=== PATIENT | female | born 1980 | race Caucasian/White ===

== ENCOUNTER 2017-09-10 21:54 | Inpatient (IN) | payer OTHER ==
[2017-09-10] MEDS ORDERED: LORazepam 2 MG/ML INJ IV STA (22:04)
[2017-09-10] MEDS ORDERED: SODIUM CHLORIDE 0.9% 1,000 ML IV STA (22:04)
[2017-09-10 22:12] LABS: Glucose,Whole Blood 92 mg/dL (75-99)
[2017-09-10] MEDS ORDERED: PHENYTOIN SODIUM INJ 1,000 MG in SODIUM CHLORIDE 0.9% 100 ML IVPB STA (22:17)
[2017-09-10 22:23] LABS: Anisocytosis Slight; Basophils % (A) 0 %; Eosinophils # (A) 0.3 k/uL (0-0.7); Eosinophils % (A) 4 %; HCT 41.3 % (34.0-46.0); HGB 13.6 gm/dL (11.4-16.0); Lymphocytes % (A) 27 %; MCH 30.3 pg (25.0-35.0); MCHC 32.8 g/dL (31.0-37.0); MCV 92.3 fL (80.0-100.0); Mean Platelet Volume 6.7; Monocytes # (A) 0.4 k/uL (0-1.0); Monocytes % (A) 5 %; Neutrophils # (A) 4.3 k/uL (1.3-7.7); Neutrophils % (A) 60 %; Platelet Count 377 k/uL (150-450); RBC 4.48 m/uL (3.80-5.40); RDW 16.4 % (11.5-15.5); WBC 7.2 k/uL (3.8-10.6)
[2017-09-10 22:33] LABS: Glucose 94 mg/dL (74-99); Total Protein 7.4 g/dL (6.3-8.2)
[2017-09-10 22:34] LABS: ALT 34 U/L (9-52); AST 30 U/L (14-36); Albumin 4.4 g/dL (3.5-5.0); Alcohol <10 mg/dL; Alkaline Phosphatase 87 U/L (38-126); Anion Gap 15 mmol/L; Blood Urea Nitrogen 13 mg/dL (7-17); Calcium 10.4 mg/dL (8.4-10.2); Carbon Dioxide 22 mmol/L (22-30); Chloride 102 mmol/L (98-107); Magnesium 2.1 mg/dL (1.6-2.3); Sodium 139 mmol/L (137-145); Total Bilirubin 0.4 mg/dL (0.2-1.3)
--- NOTE | 2017-09-10 23:06 | ED ---
General Adult HPI - General Chief complaint: Seizure Stated complaint: seizure Time Seen by Provider: 09/10/17 21:55 Source: patient, EMS, RN notes reviewed Mode of arrival: EMS Limitations: altered mental status - History of Present Illness Initial comments: Patient is an unresponsive 37-year-old female presenting to the emergency department following seizure. Patient reportedly is at [facility] for opiate problems. Patient is unresponsive and postictal and unable to provide history. EMS reports patient had a seizure at [facility]. They did witness two seizures in route and patient receive 10 mg of Versed IM. Patient did have another seizure in the emergency department lasting seconds. Patient does have a history of seizures. Patient is on Keppra. Patient has also been receiving phenobarbital at [facility]. - Related Data Home Medications Medication Instructions Recorded Confirmed Acetaminophen Tab [Tylenol Tab] 650 mg PO Q4H PRN 09/10/17 09/10/17 Calcium 1000mg Magnesium 500mg 1 tab PO TID PRN 09/10/17 09/10/17 Chlorpheniramine Maleate 4 mg PO Q4H PRN 09/10/17 09/10/17 [Chlor-Trimeton] Gabapentin [Neurontin] 1,200 mg PO BID@0600,1730 09/10/17 09/10/17 Hyoscyamine Sulfate [Levsin] 0.125 mg PO QID PRN 09/10/17 09/10/17 Ibuprofen [Motrin] 600 mg PO Q6H PRN 09/10/17 09/10/17 Loperamide [Imodium] 2 mg PO QID PRN 09/10/17 09/10/17 Methadone (Unknown Dose) 1 dose PO DIRECTED 09/10/17 09/10/17 Multivitamins, Thera [Multivitamin 1 tab PO DAILY 09/10/17 09/10/17 (formulary)] Ondansetron HCl [Zofran] 8 mg PO Q6H PRN 09/10/17 09/10/17 Ondansetron [Zofran] 4 mg IM Q6H PRN 09/10/17 09/10/17 PHENobarbital 32.4 mg PO ONCE 09/10/17 09/10/17 Sertraline [Zoloft] 150 mg PO DAILY@0600 09/10/17 09/10/17 Thiamine [Vitamin B-1] 100 mg PO DAILY 09/10/17 09/10/17 Tigan 200mg 200 mg IM Q6H PRN 09/10/17 09/10/17 Trimethobenzamide [Tigan] 300 mg PO Q6H PRN 09/10/17 09/10/17 busPIRone HCl [Buspar] 10 mg PO TID PRN 09/10/17 09/10/17 cloNIDine HCL [Catapres] 0.1 mg PO Q4H PRN 09/10/17 09/10/17 levETIRAcetam [Keppra] 500 mg PO DAILY@0600 09/10/17 09/10/17 traZODone HCL 50 - 150 mg PO HS 09/10/17 09/10/17 Allergies Allergy/AdvReac Type Severity Reaction Status Date / Time No Known Allergies Allergy Unverified 09/10/17 22:13 Review of Systems ROS Statement: Those systems with pertinent positive or pertinent negative responses have been documented in the HPI. ROS Other: All systems not noted in ROS Statement are negative. Limitations: ROS unobtainable due to patients medical condition Past Medical History Past Medical History: Seizure Disorder History of Any Multi-Drug Resistant Organisms: None Reported Past Surgical History: Orthopedic Surgery Past Psychological History: No Psychological Hx Reported Smoking Status: Current every day smoker Past Alcohol Use History: None Reported Past Drug Use History: Unable to Obtain General Exam Limitations: altered mental status, physical limitation General appearance: lethargic Head exam: Present: atraumatic Eye exam: Present: normal appearance, PERRL ENT exam: Present: normal oropharynx Neck exam: Present: normal inspection Respiratory exam: Present: normal lung sounds bilaterally Cardiovascular Exam: Present: regular rate, normal rhythm GI/Abdominal exam: Present: soft. Absent: tenderness Extremities exam: Present: normal inspection Neurological exam: Present: other (Postictal and unresponsive.) Psychiatric exam: Present: other (Unresponsive) Skin exam: Present: normal color Course Vital Signs 09/10/17 22:39 Temperature 99.0 F Pulse Rate 92 Respiratory 20 Rate Blood Pressure 102/56 O2 Sat by Pulse 96 Oximetry - Reevaluation(s) Reevaluation #1: 09/10/17 23:14 Patient reevaluated and alert and appropriate. Patient oriented except for believes years 2016. Patient states she has had seizures since age 19. Patient states she only has a few per year. Patient states she has been taking her Keppra. Patient states she has been at [facility] around 10 days now. 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 Patient states she has been on phenobarbital there and has been weaned off it. Last dose of phenobarbital was today. Patient denies any significant benzodiazepine or alcohol use. Patient denies any significant injury from seizures. 09/10/17 23:21 Case was discussed in detail with Dr. Chavarria, who will admit for hospital call. EKG Findings - EKG Comments: EKG Findings:: Normal sinus rhythm 81. MT 138. QRS 94. QT 406. QTc 471. Normal axis. Incomplete right bundle-branch block. No acute ST change. Medical Decision Making - Lab Data Result diagrams: 09/10/17 22:12 09/10/17 22:12 Lab Results 09/10/17 09/10/17 09/10/17 Range/Units 22:10 22:12 22:12 WBC 7.2 (3.8-10.6) k/uL RBC 4.48 (3.80-5.40) m/uL Hgb 13.6 (11.4-16.0) gm/dL Hct 41.3 (34.0-46.0) % MCV 92.3 (80.0-100.0) fL MCH 30.3 (25.0-35.0) pg MCHC 32.8 (31.0-37.0) g/dL RDW 16.4 H (11.5-15.5) % Plt Count 377 (150-450) k/uL Neutrophils % 60 % Lymphocytes % 27 % Monocytes % 5 % Eosinophils % 4 % Basophils % 0 % Neutrophils # 4.3 (1.3-7.7) k/uL Lymphocytes # 2.0 (1.0-4.8) k/uL Monocytes # 0.4 (0-1.0) k/uL Eosinophils # 0.3 (0-0.7) k/uL Basophils # 0.0 (0-0.2) k/uL Anisocytosis Slight Sodium 139 (137-145) mmol/L Potassium 4.0 (3.5-5.1) mmol/L Chloride 102 (98-107) mmol/L Carbon Dioxide 22 (22-30) mmol/L Anion Gap 15 mmol/L BUN 13 (7-17) mg/dL Creatinine 0.85 (0.52-1.04) mg/dL Est GFR (MDRD) Af Amer >60 (>60 ml/min/1.73 sqM) Est GFR (MDRD) Non-Af >60 (>60 ml/min/1.73 sqM) Glucose 94 (74-99) mg/dL POC Glucose (mg/dL) 92 (75-99) mg/dL POC Glu [employer] [facility] ID Johnson Stoddard Calcium 10.4 H (8.4-10.2) mg/dL Magnesium 2.1 (1.6-2.3) mg/dL Total Bilirubin 0.4 (0.2-1.3) mg/dL AST 30 (14-36) U/L ALT 34 (9-52) U/L Alkaline Phosphatase 87 (38-126) U/L Total Protein 7.4 (6.3-8.2) g/dL Albumin 4.4 (3.5-5.0) g/dL Serum Alcohol <10 mg/dL - Radiology Data Radiology results: image reviewed (Computed tomography scan of the brain shows no acute process.) Critical Care Time Critical Care Time: Yes Total Critical Care Time: 32 Disposition Clinical Impression: Status epilepticus Disposition: ADMITTED IP TO THIS [facility] Condition: Serious Referrals: None,Stated [Primary Care Provider] - 1-2 days Decision Time: 23:21
--- NOTE | 2017-09-10 23:08 | CT ---
EXAMINATION TYPE: CT brain wo con DATE OF EXAM: 09/10/2017 COMPARISON: NONE HISTORY: Seizures today, history of epilepsy. CT DLP: 1018.50 mGycm. Automated Exposure Control for Dose Reduction was Utilized. TECHNIQUE: CT scan of the head is performed without contrast. FINDINGS: Ventricles and sulci appear normal. There is no mass effect nor midline shift. There is n o sign of intracranial hemorrhage. The calvarium is intact. CONCLUSION: Negative CT scan of the brain.
[2017-09-10] MEDS ORDERED: NALOXONE 0.4 MG/ML 1 ML VIAL IV PRN ×2 (23:22→23:52)
[2017-09-10] MEDS ORDERED: LORazepam 2 MG/ML INJ IV PRN (23:22)
[2017-09-10] MEDS ORDERED: CALCIUM CARBONATE 500 MG CHEWABLE PO PRN (23:52)
[2017-09-10] MEDS ORDERED: MELATONIN 3 MG TABLET PO PRN (23:52)
[2017-09-10] MEDS ORDERED: IBUPROFEN 400 MG TAB PO PRN (23:52)
[2017-09-10] MEDS ORDERED: ACETAMINOPHEN TAB 325 MG TAB PO PRN (23:52)
[2017-09-10] MEDS ORDERED: ONDANSETRON 4 MG/2 ML VIAL IVP PRN (23:52)
--- NOTE | 2017-09-10 23:53 | P.HPIM ---
History of Present Illness H&P Date: 09/10/17 Chief Complaint: seizure Patient is a 37-year-old female with a past medical history of tobacco abuse, methadone use, and seizure disorder who presented via EMS to the hospital from [facility] after having a seizure that lasted 10 minutes. At [facility] bryce gave her 2 mg of Ativan. She had 2 additional seizures in the ems rig where they gave her 10 of Valium. She had an additional seizure after presenting here to the hospital requiring an additional 1 mg of Ativan. They also started on Dilantin 1000 mg. In the ER she underwent an extensive evaluation. Vital sign, head CT, and laboratory analysis were all within normal limits. Patient seen and examined at bedside. She has been detoxing from methadone and has decreased from 154 mg daily down to 40 mg daily. She had been on a phenobarbital taper and her last dose was today. She is started at 92.4 mg in today's dose was 32.4. She was tapered over what appears to be a 10 day period of time. She states that she delivered her son on 07/09/2017. She had been placed on methadone during her secondary to prior alcohol abuse. She states that her son was detoxed from methadone after and she wants to come off as well. She complains of a headache that started after her seizure as well as generalized body aches. She states that they told her she feel quite hard with her first seizure. She has been suffering from signs of opiate withdrawal for the last several days including feeling achy all over with diffuse joint pain and body aches. She also reports feeling shaky and having a feeling of things crawling all over her skin. She reports that her appetite was decreased today but had been normal otherwise. She also reports that she has some blurry vision after her seizure which seems to be getting better. She does not recall her seizures. She doesn't think she lost control of her bowel or bladder. She first started having seizures approximately 8 years ago after coming off heroin. She states her last seizure was 05/09/2017 area she states that prior to that she was having intermittent seizures throughout the summer. She states she sometimes has seizures quite frequently and otherwise can go a long period of time without seizures area she states that she follows with a neurologist out of [facility]. Review of Systems General: no fever/chills, no rigors, no weight loss/weight gain, + fatigue Eyes: + burry vision, no loss of vision ENT: no rhinorrhea, no congestion, no sore throat Cardiovascular: no chest pain, no palpitations, no preyncope/syncope, no edema Pulmonary: no shortness of breath, no wheezing, no cough Abdominal: no abdominal pain, no constipation, no diarrhea, no vomiting, no nausea Genitourinary: no dysuria, no urinary frequency, no unusual discharge/odor Neuro: + seizure, +l paresthesias, no unusual paresis/paralysis, + headache Dermatologic: no unusual rashes, no unusual lesions, no unusual changes in nails Hematologic: no hemoptysis, no hematuria, no melena/hematochezia Psychiatric: no changes in mood or behaviors, + poor sleep pattern Past Medical History Past Medical History: Seizure Disorder History of Any Multi-Drug Resistant Organisms: None Reported Past Surgical History: Orthopedic Surgery Additional Past Surgical History / Comment(s): L ank fracture repair, left knee and femure fracture repair, left collar bone fracture repair Past Psychological History: No Psychological Hx Reported Smoking Status: Current every day smoker Past Alcohol Use History: None Reported Past Drug Use History: Heroin, Prescription Drug Abuse Additional History: Lives with her fiance and son - Past Family History Mother Additional Family Medical History / Comment(s): No family hsitory of seizure diorder Medications and Allergies Home Medications Medication Instructions Recorded Confirmed Type Acetaminophen Tab [Tylenol Tab] 650 mg PO Q4H PRN 09/10/17 09/10/17 History Calcium 1000mg Magnesium 500mg 1 tab PO TID PRN 09/10/17 09/10/17 History Chlorpheniramine Maleate 4 mg PO Q4H PRN 09/10/17 09/10/17 History [Chlor-Trimeton] Gabapentin [Neurontin] 1,200 mg PO BID@0600,1730 09/10/17 09/10/17 History Hyoscyamine Sulfate [Levsin] 0.125 mg PO QID PRN 09/10/17 09/10/17 History Ibuprofen [Motrin] 600 mg PO Q6H PRN 09/10/17 09/10/17 History Loperamide [Imodium] 2 mg PO QID PRN 09/10/17 09/10/17 History Methadone (Unknown Dose) 1 dose PO DIRECTED 09/10/17 09/10/17 History Multivitamins, Thera [Multivitamin 1 tab PO DAILY 09/10/17 09/10/17 History (formulary)] Ondansetron HCl [Zofran] 8 mg PO Q6H PRN 09/10/17 09/10/17 History Ondansetron [Zofran] 4 mg IM Q6H PRN 09/10/17 09/10/17 History PHENobarbital 32.4 mg PO ONCE 09/10/17 09/10/17 History Sertraline [Zoloft] 150 mg PO DAILY@0600 09/10/17 09/10/17 History Thiamine [Vitamin B-1] 100 mg PO DAILY 09/10/17 09/10/17 History Tigan 200mg 200 mg IM Q6H PRN 09/10/17 09/10/17 History Trimethobenzamide [Tigan] 300 mg PO Q6H PRN 09/10/17 09/10/17 History busPIRone HCl [Buspar] 10 mg PO TID PRN 09/10/17 09/10/17 History cloNIDine HCL [Catapres] 0.1 mg PO Q4H PRN 09/10/17 09/10/17 History levETIRAcetam [Keppra] 500 mg PO DAILY@0600 09/10/17 09/10/17 History traZODone HCL 50 - 150 mg PO HS 09/10/17 09/10/17 History Allergies Allergy/AdvReac Type Severity Reaction Status Date / Time No Known Allergies Allergy Unverified 09/10/17 22:13 Physical Exam Osteopathic Statement: *. No significant issues noted on an osteopathic structural exam other than those noted in the History and Physical/Consult. Vitals: Vital Signs Temp Pulse Resp BP Pulse Ox 09/10/17 22:39 99.0 F 92 20 102/56 96 Intake and Output 09/10/17 09/10/17 09/11/17 14:59 22:59 06:59 Other: Weight 74.843 kg Patient Weight 09/11/17 06:59 Weight 74.843 kg General: non toxic, no distress, appears at stated age, normal weight Derm: no unusual rashes/lesions no unusual ecchymoses, warm, dry Head: atraumatic, normocephalic, symmetric Eyes: EOMI, no lid lag, anicteric sclera, pupils equal round reactive to light ENT: Nose and ears atraumatic, no thrush, no pharyngeal erythema Neck: No thyromegaly, no cervical lymphadenopathy, trachea midline, supple Mouth: no lip lesion, mucus membranes moist Cardiovascular: S1S2 reg, no murmur, positive posterior tibial pulse bilateral, no edema, capillary refill less than 2 seconds Lungs: CTA bilateral, no rhonchi, no rales , no accessory muscle use Abdominal: soft, nontender to palpation, no guarding, no appreciable organomegaly, normal bowel sounds Ext: no gross muscle atrophy, muscle strength 5 out of 5 in all 4 extremities grossly, no contractures, Neuro: CN II-XI grossly intact, light touch intact all 4 extremities, finger to nose within normal limits, Psych: Alert, oriented, appropriate affect Results CBC & Chem 7: 09/10/17 22:12 09/10/17 22:12 Labs: Abnormal Lab Results - Last 24 Hours (Table) 09/10/17 09/10/17 Range/Units 22:12 22:12 RDW 16.4 H (11.5-15.5) % Calcium 10.4 H (8.4-10.2) mg/dL CT Scan - head: report reviewed Thrombosis Risk Factor Assmnt - DVT/VTE Prophylaxis DVT/VTE Prophylaxis: Mechanical Prophylaxis ordered Assessment and Plan Assessment: 1. Status epliepticus - suspect due to wean from phenobarbital - dilantin load and then 100mg TID - on keppra 500mg once daily at home, I am wondering if this with an extended release keppra and was inadverntly switched to normal keppra, will use Keppra 500mg twice dialy - Await keppra and phenobarb levels. - Seizure precautions - Neuro checks - EEG - Neurology consult - she had also received flagyl which lowers the seizure threshold - Await UDS 2. Methadone withdrawal - on a slow steffanie - resume her current dose of 44mg dialy - return to [facility] at discharge 3. Tobacco abuse - cessation - nicotine replacement 4. muscle aches - likely from opiate withdrawal - in light of multiple seizure check CPK now thne [id number] - IVF Surrogate decision-maker: Neha Moran [phone] CODE STATUS:full DVT prophylaxis: SCD Discussed with: Patient, ED physician Anticipated discharge: 48-[address] A total of 65 minutes was spent on the care of this complex patient more than 50 % of the time was spent in counseling and care coordination.
[2017-09-11] MEDS ORDERED: SODIUM CHLORIDE 0.9% 1,000 ML IV STA (00:04)
[2017-09-11] MEDS ORDERED: NICOTINE POLACRILEX 2 MG GUM BUCCAL PRN (00:38)
[2017-09-11 00:48] VITALS: BMI 26.7
[2017-09-11 01:30] LABS: Appearance,Urine Cloudy (Clear); Bilirubin,Urine Negative (Negative); Blood,Urine Negative (Negative); Color,Urine Yellow; Glucose,Urine (UA) Negative (Negative); Ketones,Urine Negative (Negative); Leukocyte Esterase,Urine Small (Negative); Mucus,Urine Rare /hpf; Nitrite,Urine Negative (Negative); PH, Urine 6.5 (5.0-8.0); Protein,Urine Negative (Negative); RBC,Urine 1 /hpf (0-5); Specific Gravity,Urine 1.014 (1.001-1.035); Squamous Epithelial Cell,Urine 11 /hpf (0-4); Urobilinogen,Urine <2.0 mg/dL (<2.0); WBC,Urine 7 /hpf (0-5)
[2017-09-11] MEDS: SODIUM CHLORIDE 0.9% 1,000 ML IV SCH ×3 (01:30→16:26)
[2017-09-11 01:38] LABS: Amphetamine Screen,Urine Not Detected (NotDetected); Barbiturate Screen,Urine Detected (NotDetected); Benzodiazepines Screen,Urine Detected (NotDetected); Cocaine Screen,Urine Not Detected (NotDetected); Methadone Screen, Urine Detected (NotDetected); Opiate Screen,Urine Not Detected (NotDetected); Oxycodone Screen, Urine Not Detected (NotDetected); Phencyclidine Screen,Urine Not Detected (NotDetected); Tricyclic Antidepressant,Urine Not Detected (NotDetected); Urn Cannabinoid Scrn Not Detected (NotDetected)
[2017-09-11] MEDS: busPIRone HCl 10 MG TAB PO PRN (04:10)
[2017-09-11 04:54] LABS: Anisocytosis Slight; Basophils % (A) 0 %; Eosinophils # (A) 0.3 k/uL (0-0.7); Eosinophils % (A) 4 %; HCT 37.3 % (34.0-46.0); HGB 12.1 gm/dL (11.4-16.0); Lymphocytes # (A) 2.1 k/uL (1.0-4.8); Lymphocytes % (A) 30 %; MCH 29.8 pg (25.0-35.0); MCHC 32.3 g/dL (31.0-37.0); MCV 92.3 fL (80.0-100.0); Mean Platelet Volume 7.3; Monocytes # (A) 0.3 k/uL (0-1.0); Monocytes % (A) 4 %; Neutrophils # (A) 3.9 k/uL (1.3-7.7); Neutrophils % (A) 57 %; Platelet Count 339 k/uL (150-450); RBC 4.04 m/uL (3.80-5.40); RDW 17.7 % (11.5-15.5); WBC 6.8 k/uL (3.8-10.6)
[2017-09-11 05:13] LABS: Anion Gap 7 mmol/L; Blood Urea Nitrogen 12 mg/dL (7-17); Calcium 8.8 mg/dL (8.4-10.2); Carbon Dioxide 25 mmol/L (22-30); Chloride 106 mmol/L (98-107); Creatine Kinase 93 U/L (30-135); Glucose 84 mg/dL (74-99); Magnesium 1.9 mg/dL (1.6-2.3); Phosphorus 4.5 mg/dL (2.5-4.5); Potassium 4.1 mmol/L (3.5-5.1); Sodium 138 mmol/L (137-145)
[2017-09-11] MEDS ORDERED: levETIRAcetam 500 MG TAB PO SCH ×2 (06:00→09:00)
[2017-09-11] MEDS: LORazepam 2 MG/ML INJ IV PRN ×7 (06:10→21:53)
[2017-09-11] MEDS: SERTRALINE 50 MG TAB PO SCH (07:40)
[2017-09-11] MEDS: GABAPENTIN 400 MG CAP PO SCH ×2 (07:40→20:32)
[2017-09-11] MEDS ORDERED: PHENYTOIN SODIUM INJ 700 MG in SODIUM CHLORIDE 0.9% 100 ML IVPB STA (08:02)
[2017-09-11] MEDS ORDERED: PHENYTOIN SODIUM EXTENDED 100 MG CAP PO SCH (09:00)
[2017-09-11] MEDS ORDERED: METHADONE 10 MG TAB PO SCH (09:00)
[2017-09-11] MEDS: KETOROLAC 30 MG/ML 1 ML VIAL IVP PRN ×2 (09:08→16:53)
[2017-09-11] MEDS ORDERED: PHENYTOIN SODIUM INJ 100 MG in SODIUM CHLORIDE 0.9% 100 ML IVPB SCH (10:00)
[2017-09-11] MEDS: levETIRAcetam IV 500 MG in SODIUM CHLORIDE 0.9% 100 ML IVPB SCH ×2 (10:21→20:32)
[2017-09-11] MEDS: PHENYTOIN SODIUM INJ 50 MG/ML 2 ML VIAL IVP SCH ×3 (10:23→21:53)
[2017-09-11] MEDS: THIAMINE 100 MG TAB PO SCH (10:30)
[2017-09-11] MEDS: FAMOTIDINE 20 MG TAB PO SCH ×2 (10:30→20:33)
[2017-09-11] MEDS: PHENobarbital SODIUM 130 MG/ML 1 ML VIAL IV SCH (11:18)
[2017-09-11] MEDS ORDERED: METHADONE 5 MG TAB PO ONE (11:45)
--- NOTE | 2017-09-11 12:01 | P.CNNES ---
History of Present Illness Consult date: 09/11/17 Reason for Consult: Patient with seizures during methadone detox program. History of Present Illness: This patient is a 37-year-old right-handed white female who was recently admitted to [facility] for methadone detoxification program. Patient was at the [facility] for the past 10 days. Yesterday she was noted to have a seizure that lasted 10 minutes in duration. She was given 2 mg of Ativan. She apparently had 2 additional seizures and EMS was called to the facility. She was given 10 mg of Valium and then transported to the emergency room at the [facility] for further evaluation. She had an additional seizure and was loaded with IV Dilantin in the emergency room by Dr. Sage. She was sent for a computed tomography scan of the brain which came back negative for any abnormalities. She was then transferred to the intensive care unit for close monitoring. Patient states that she had a history of methadone addiction and was slowly being detoxified at the [facility]. She was on 40 mg of methadone just prior to the onset of seizures. She was also placed on various medications for seizure prophylaxis as she had a history of previous seizures. She is currently on Keppra 500 mg twice a day. She was loaded with IV Dilantin in the emergency room last night and her stat Dilantin level did come back subtherapeutic this morning at 6.7. She was given an additional IV bolus of Dilantin if she continued to have short 5-10 second episodes of seizure-like activity early this morning in the ICU. Patient is a poor historian but states she has a history of seizures for over 6 months. She follows with a neurologist in [facility] in [place]. She does have history of multiple drug abuse in the past as well as use of heroin in the past. She is now currently more relaxed and appropriate in the ICU and has had no further seizure -like spells. Apparently they attempted to do an EEG this morning but the patient was very agitated and he could not perform the EEG. She has some more awake and alert and is less anxious at this time and has been communicating with ICU nursing staff. Apparently the dose of methadone prior to her coming to the hospital was 60 mg daily. It is possible she may be having withdrawal symptoms to the methadone at a lower dose of [address] Artinian has adjusted her dosage today. The patient is able to answer questions this morning in the ICU. She should be monitored for any further seizures. We will reattempt to get an EEG for this patient today. At this time we will continue her on both Dilantin and Keppra. We will get anticonvulsant blood levels and adjust her dose as needed. She hopefully will be able to return to [facility] for ongoing drug rehabilitation. Her overall prognosis at this time remains guarded. Review of Systems Constitutional: Denies chills, Denies fever Eyes: denies blurred vision, denies pain Ears, nose, mouth and throat: Denies headache, Denies sore throat Cardiovascular: Denies chest pain, Denies shortness of breath Respiratory: Denies cough Gastrointestinal: Denies abdominal pain, Denies diarrhea, Denies nausea, Denies vomiting Genitourinary: Denies dysuria, Denies hematuria Musculoskeletal: Denies myalgias Integumentary: Denies pruritus, Denies rash Neurological: Reports change in mentation, Reports confusion, Reports seizures, Denies numbness, Denies weakness Psychiatric: Denies anxiety, Denies depression Endocrine: Denies fatigue, Denies weight change Past Medical History Past Medical History: Seizure Disorder History of Any Multi-Drug Resistant Organisms: None Reported Past Surgical History: Orthopedic Surgery Additional Past Surgical History / Comment(s): L ank fracture repair, left knee and femure fracture repair, left collar bone fracture repair Past Anesthesia/Blood Transfusion Reactions: No Reported Reaction Past Psychological History: No Psychological Hx Reported Smoking Status: Current every day smoker Past Alcohol Use History: None Reported Past Drug Use History: Heroin, Prescription Drug Abuse - Past Family History Mother Additional Family Medical History / Comment(s): No family hsitory of seizure diorder Father History Unknown: Yes Medications and Allergies Home Medications Medication Instructions Recorded Confirmed Type Acetaminophen Tab [Tylenol Tab] 650 mg PO Q4H PRN 09/10/17 09/10/17 History Calcium 1000mg Magnesium 500mg 1 tab PO TID PRN 09/10/17 09/10/17 History Chlorpheniramine Maleate 4 mg PO Q4H PRN 09/10/17 09/10/17 History [Chlor-Trimeton] Gabapentin [Neurontin] 1,200 mg PO BID@0600,1730 09/10/17 09/10/17 History Hyoscyamine Sulfate [Levsin] 0.125 mg PO QID PRN 09/10/17 09/10/17 History Ibuprofen [Motrin] 600 mg PO Q6H PRN 09/10/17 09/10/17 History Loperamide [Imodium] 2 mg PO QID PRN 09/10/17 09/10/17 History Methadone (Unknown Dose) 1 dose PO DIRECTED 09/10/17 09/10/17 History Multivitamins, Thera [Multivitamin 1 tab PO DAILY 09/10/17 09/10/17 History (formulary)] Ondansetron HCl [Zofran] 8 mg PO Q6H PRN 09/10/17 09/10/17 History Ondansetron [Zofran] 4 mg IM Q6H PRN 09/10/17 09/10/17 History PHENobarbital 32.4 mg PO ONCE 09/10/17 09/10/17 History Sertraline [Zoloft] 150 mg PO DAILY@0600 09/10/17 09/10/17 History Thiamine [Vitamin B-1] 100 mg PO DAILY 09/10/17 09/10/17 History Tigan 200mg 200 mg IM Q6H PRN 09/10/17 09/10/17 History Trimethobenzamide [Tigan] 300 mg PO Q6H PRN 09/10/17 09/10/17 History busPIRone HCl [Buspar] 10 mg PO TID PRN 09/10/17 09/10/17 History cloNIDine HCL [Catapres] 0.1 mg PO Q4H PRN 09/10/17 09/10/17 History levETIRAcetam [Keppra] 500 mg PO DAILY@0600 09/10/17 09/10/17 History traZODone HCL 50 - 150 mg PO HS 09/10/17 09/10/17 History Allergies Allergy/AdvReac Type Severity Reaction Status Date / Time Penicillins Allergy Unknown Verified 09/11/17 00:25 Childhood Physical Examination - Vital Signs Vital Signs: Vital Signs Temp Pulse Pulse Resp BP BP Pulse Ox 09/11/17 04:00 98.1 F 62 18 89/61 98 09/11/17 00:12 16 09/11/17 00:00 98 09/10/17 23:52 61 20 86/56 100 09/10/17 22:39 99.0 F 92 20 102/56 96 09/10/17 22:05 97.6 F 59 L 16 78/48 98 Intake and Output 09/10/17 09/11/17 09/11/17 22:59 06:59 14:59 Intake Total 675 Output Total 470 Balance 205 Intake: IV 375 Sodium Chloride 0.9% 1, 375 000 ml @ 125 mls/hr IV . Q8H [facility] Rx#:[id number] Amount of Fluid Infused ( 300 ml) Output: Urine 470 Other: Voiding Method Bedpan Weight 74.843 kg - Constitutional General appearance: average body habitus, cooperative - EENT EENT: mucous membranes moist - Respiratory Respiratory: lungs clear, normal breath sounds - Cardiovascular Cardiovascular: regular rate, normal S1, normal S2 Extremities: no peripheral edema bilaterally - Gastrointestinal Gastrointestinal: normoactive bowel sounds - Integumentary Integumentary: normal - Neurologic Cranial nerve examination: PERRL, EOMI, VFF, V1/V2/V3 grossly intact, face symmetric, tongue midline, intact gag reflex, intact corneal reflex, normal palatal elevation Speech examination: intact Sensorimotor examination: intact Detailed motor examination: grossly full strength in all extremities Motor examination - right side: 4/5: biceps, triceps, wrist flexion, wrist extension, panel builder, hip flexors, knee extensors, dorsiflexion, toe extension (EHL) , plantarflexion Motor examination - left side: 4/5: biceps, triceps, wrist flexion, wrist extension, panel builder, hip flexors, knee extensors, dorsiflexion, toe extension (EHL) , plantarflexion Detailed sensory examination: intact Reflex and gait examination: intact Reflexes: 1+: ankle, bicep, knee, tricep - Musculoskeletal Musculoskeletal: no pain - Psychiatric Psychiatric: mood/affect appropriate, cooperative Results - Laboratory Findings CBC and BMP: 09/11/17 04:31 09/11/17 04:31 Abnormal Lab Findings: Abnormal Labs 09/10/17 09/10/17 09/11/17 22:12 22:12 01:16 RDW 16.4 H Calcium 10.4 H Urine Appearance Ur Leukocyte Esterase Urine WBC Ur Squamous Epith Cells Urine Mucus Urine Methadone Screen Detected H Ur Barbiturates Screen Detected H U Benzodiazepines Scrn Detected H 09/11/17 09/11/17 01:16 04:31 RDW 17.7 H Calcium Urine Appearance Cloudy H Ur Leukocyte Esterase Small H Urine WBC 7 H Ur Squamous Epith Cells 11 H Urine Mucus Rare H Urine Methadone Screen Ur Barbiturates Screen U Benzodiazepines Scrn Assessment and Plan (1) Opiate withdrawal Current Visit: Yes Status: Acute Code(s): F11.23 - OPIOID DEPENDENCE WITH WITHDRAWAL SNOMED Code(s): 27374414 (2) Complex partial epilepsy Current Visit: Yes Status: Acute Code(s): G40.209 - LOCAL-REL SYMPTC EPI W CMPLX PRT SEIZ,NOT NTRCT,W/O STAT EPI SNOMED Code(s): 304584232 (3) Status epilepticus Current Visit: Yes Status: Acute Code(s): G40.901 - EPILEPSY, UNSP, NOT INTRACTABLE, WITH STATUS EPILEPTICUS SNOMED Code(s): 575053217 Plan: This patient is 37-year-old female who was admitted to hospital after having a breakthrough seizure at [facility]. Apparently the seizure at the facility lasted 5-10 minutes in duration. She was treated with 2 mg of Ativan. She had subsequent seizures and was transported by EMS to the emergency room at [facility] for further evaluation. She was seen in the ER by Dr. Sage. She was sent for computed tomography scan of the brain which was negative for any acute changes. She had further seizure events in the ER and was loaded with 1 g of IV Dilantin. She was then transferred to the intensive care unit for close monitoring. Early this morning she had some 10 second episodes of seizure-like activity. A stat Dilantin level was ordered and was subtherapeutic at 6.7. A bolus of IV Dilantin was given. Patient subsequently was restarted on her Keppra as her primary anticonvulsant medication. She was also maintained on IV Dilantin. Her dosage of methadone was adjusted did sit was felt that she had some withdrawal to the opiates. She is now more awake and alert and has had no further seizure activity in the ICU. She was unable to complete the EEG this morning she was very agitated. We will reattempt to obtain the EEG this afternoon. Her overall prognosis at this time remains guarded. We will check her anticonvulsant blood levels tomorrow morning and adjust her dose as needed. She will require return to the [facility] once her seizures are stabilized. Her overall prognosis at this time remains guarded. Time with Patient: Greater than 30
--- NOTE | 2017-09-11 14:04 | P.PN ---
Subjective Progress Note Date: 09/11/17 Patient is agitated, complaining of nausea and cramps having formication symptoms not complain of very much pain, nursing reporting several episodes of seizure-like activity this a.m. has had over 10 episodes since being admitted. Objective - Vital Signs Vital signs: Vital Signs Temp 98.1 F 09/11/17 04:00 Pulse 62 09/11/17 04:00 Resp 18 09/11/17 04:00 BP 89/61 09/11/17 04:00 Pulse Ox 98 09/11/17 04:00 Intake & Output 09/10/17 09/11/17 09/11/17 18:59 06:59 18:59 Intake Total 675 Output Total 470 Balance 205 Weight 74.843 kg Intake: IV 375 Sodium Chloride 0.9% 1, 375 000 ml @ 125 mls/hr IV . Q8H [facility] Rx#:[id number] Amount of Fluid Infused ( 300 ml) Output: Urine 470 Other: Voiding Method Bedpan - Exam Constitutional: No acute distress, conversant, pleasant Eyes: Anicteric sclerae, moist conjunctiva, no lid-lag, PERRLA ENMT: NC/AT,Oropharynx clear, no erythema, exudates Neck:Supple, FROM, no masses, or JVD, No carotid bruits; No thyromegaly Lungs: Clear to auscultation, Clear to percussion, Normal respiratory effort, no accessory muscle use Cardiovascular: Heart regular in rate and rhythm, No murmurs, gallops, or rubs no peripheral edema Abdominal: Soft Nontender, nom distended, no guarding, no rebound or rigidity, Normoactive bowel sounds No hepatomegaly, No splenomegaly, No palpable mass No abdominal wall hernia noted Skin: Normal temperature, tone, texture, turgor, No induration No subcutaneous nodules, No rash, lesions, No ulcers Extremities:No digital cyanosis No clubbing, Pedal pulses intact and symmetrical Radial pulses intact and symmetrical Normal gait and station, No calf tenderness Psychiatric: Alert and oriented to person, place and time, agitated, not having any hallucinations Neuro: Muscles Strength 5/5 in all 4 extremities, Sensation to light touch grossly present throughout, Cranial nerves II-XII grossly intact. No focal sensory deficits - Labs CBC & Chem 7: 09/11/17 04:31 09/11/17 04:31 Labs: Abnormal Lab Results - Last 24 Hours (Table) 09/10/17 09/10/17 09/11/17 Range/Units 22:12 22:12 01:16 RDW 16.4 H (11.5-15.5) % Calcium 10.4 H (8.4-10.2) mg/dL Urine Appearance (Clear) Ur Leukocyte Esterase (Negative) Urine WBC (0-5) /hpf Ur Squamous Epith Cells (0-4) /hpf Urine Mucus (None) /hpf Urine Methadone Screen Detected H (NotDetected) Ur Barbiturates Screen Detected H (NotDetected) U Benzodiazepines Scrn Detected H (NotDetected) 09/11/17 09/11/17 Range/Units 01:16 04:31 RDW 17.7 H (11.5-15.5) % Calcium (8.4-10.2) mg/dL Urine Appearance Cloudy H (Clear) Ur Leukocyte Esterase Small H (Negative) Urine WBC 7 H (0-5) /hpf Ur Squamous Epith Cells 11 H (0-4) /hpf Urine Mucus Rare H (None) /hpf Urine Methadone Screen (NotDetected) Ur Barbiturates Screen (NotDetected) U Benzodiazepines Scrn (NotDetected) Assessment and Plan (1) Status epilepticus Narrative/Plan: * Likely secondary to opiate methadone withdrawal, neurology Dr. Howard johnson has been consulted * Having ongoing intermittent seizures EEG in progress * Repeat Dilantin load is level was subtherapeutic, we'll increase frequency of Ativan and continue scheduled Keppra * Continue with neuro checks and seizure precautions * The patient is critically sick Current Visit: Yes Status: Acute Code(s): G40.901 - EPILEPSY, UNSP, NOT INTRACTABLE, WITH STATUS EPILEPTICUS SNOMED Code(s): 312793564 (2) Opiate withdrawal Narrative/Plan: * Withdrawal from methadone continue with methadone 60mg PO daily Current Visit: Yes Status: Acute Code(s): F11.23 - OPIOID DEPENDENCE WITH WITHDRAWAL SNOMED Code(s): 90364240
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
--- NOTE | 2017-09-11 18:46 | EEG ---
ELECTROENCEPHALOGRAM REPORT DATE OF EE09/11/2017. REFERRING PHYSICIAN: Dr. Harris. INTERPRETING PHYSICIAN: Dr. Abhinav Chan. ELECTROENCEPHALOGRAPHIC EXAMINATION REPORT: INDICATION FOR EXAMINATION: This patient is a 37-year-old female being evaluated for multiple seizures. Patient has history of previous seizure disorder. The patient currently on 2 anticonvulsive medications including Dilantin and Keppra. AGE: [age]. EEG FINDINGS: A routine 21 channel awake digital EEG recording was accomplished utilizing the 10-20 international system with bipolar and referential montages. The background activity in the most alert resting state consists of a low to medium amplitude, fairly well- developed and well sustained 8 Hz activity over the posterior head regions. This posterior rhythm attenuates to eye opening. There is a small amount of low amplitude 18-20 Hz beta activity seen maximally over the anterior head regions. Muscle and movement artifact was observed on a few occasions during the tracing. Hyperventilation was not performed. Photic stimulation at flash frequencies of 2-30 Hz produced a minimal occipital driving response. No epileptiform discharges were seen. IMPRESSION: This EEG is normal for the patient's age. The EEG failed to reveal any focal, lateralized, or epileptiform abnormalities. Clinical correlation is recommended. MMODL / IJN: [id number] /
[2017-09-12] MEDS: KETOROLAC 30 MG/ML 1 ML VIAL IVP PRN ×2 (01:33→19:57)
[2017-09-12] MEDS: LORazepam 2 MG/ML INJ IV PRN (01:58)
[2017-09-12 02:48] LABS: Anisocytosis Slight; Basophils % (A) 0 %; Eosinophils # (A) 0.2 k/uL (0-0.7); Eosinophils % (A) 4 %; HCT 39.6 % (34.0-46.0); HGB 12.1 gm/dL (11.4-16.0); Lymphocytes # (A) 1.8 k/uL (1.0-4.8); Lymphocytes % (A) 36 %; MCHC 30.6 g/dL (31.0-37.0); MCV 94.7 fL (80.0-100.0); Monocytes # (A) 0.3 k/uL (0-1.0); Monocytes % (A) 5 %; Neutrophils # (A) 2.6 k/uL (1.3-7.7); Neutrophils % (A) 51 %; Platelet Count 337 k/uL (150-450); RBC 4.18 m/uL (3.80-5.40); RDW 17.4 % (11.5-15.5)
[2017-09-12] MEDS: busPIRone HCl 10 MG TAB PO PRN ×2 (02:57→20:36)
[2017-09-12 02:59] LABS: Anion Gap 8 mmol/L; Blood Urea Nitrogen 10 mg/dL (7-17); Calcium 8.7 mg/dL (8.4-10.2); Carbon Dioxide 21 mmol/L (22-30); Chloride 111 mmol/L (98-107); Glucose 81 mg/dL (74-99); Magnesium 1.9 mg/dL (1.6-2.3); Phosphorus 4.1 mg/dL (2.5-4.5); Potassium 3.9 mmol/L (3.5-5.1); Sodium 140 mmol/L (137-145)
[2017-09-12 03:12] LABS: Phenytoin (Dilantin) 11.1 ug/mL
[2017-09-12] MEDS ORDERED: LORazepam 2 MG/ML INJ IV ONE (03:44)
[2017-09-12] MEDS: SODIUM CHLORIDE 0.9% 1,000 ML IV SCH ×2 (04:02→13:01)
[2017-09-12] MEDS: GABAPENTIN 400 MG CAP PO SCH ×2 (05:07→17:36)
[2017-09-12] MEDS: SERTRALINE 50 MG TAB PO SCH (05:07)
[2017-09-12] MEDS ORDERED: CYCLOBENZAPRINE 5 MG TAB PO STA (07:01)
[2017-09-12] MEDS: cloNIDine HCL 0.1 MG TAB PO PRN ×2 (07:39→20:48)
[2017-09-12] MEDS: levETIRAcetam IV 500 MG in SODIUM CHLORIDE 0.9% 100 ML IVPB SCH (08:14)
[2017-09-12] MEDS: METHADONE 10 MG TAB PO SCH (08:14)
[2017-09-12] MEDS: PHENYTOIN SODIUM INJ 50 MG/ML 2 ML VIAL IVP SCH (08:14)
[2017-09-12] MEDS: THIAMINE 100 MG TAB PO SCH (08:15)
[2017-09-12] MEDS: FAMOTIDINE 20 MG TAB PO SCH ×2 (08:15→20:01)
[2017-09-12] MEDS: PHENobarbital SODIUM 130 MG/ML 1 ML VIAL IV SCH (08:16)
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
--- NOTE | 2017-09-12 10:33 | P.PN ---
Subjective Progress Note Date: 09/12/17 Patientwas apparently agitated overnight and anxious complain of restless leg syndrome, nursing reporting 2 episodes of seizure-like activity this a.m. apparently tonic-clonic in nature lasting up to 10 seconds resolving with Ativan. Patient is currently sedated and somnolent but arousable and answering questions appropriately. Objective - Vital Signs Vital signs: Vital Signs Temp 98.5 F 09/12/17 04:00 Pulse 59 L 09/12/17 09:00 Resp 10 L 09/12/17 09:00 BP 106/72 09/12/17 09:00 Pulse Ox 94 L 09/12/17 09:00 Intake & Output 09/11/17 09/12/17 09/12/17 18:59 06:59 18:59 Intake Total 1575 1635 Output Total 1600 1100 Balance -25 535 Weight 75 kg 77.4 kg 77.4 kg Intake: IV 1375 1635 Sodium Chloride 0.9% 1, 1375 1635 000 ml @ 125 mls/hr IV . Q8H [facility] Rx#:[id number] Intake, IV Titration 200 Amount Phenytoin Sodium Inj 700 100 mg In Sodium Chloride 0.9 % 100 ml @ 200 mls/hr IVPB ONCE STA Rx#: [id number] levETIRAcetam IV 500 mg 100 In Sodium Chloride 0.9% 100 ml @ 400 mls/hr IVPB Q12HR [facility] Rx#:[id number] Output: Urine 1600 1100 Other: Voiding Method Bedpan Bedpan - Exam Constitutional: No acute distress, conversant, pleasant Eyes: Anicteric sclerae, moist conjunctiva, no lid-lag, PERRLA ENMT: NC/AT,Oropharynx clear, no erythema, exudates Neck:Supple, FROM, no masses, or JVD, No carotid bruits; No thyromegaly Lungs: Clear to auscultation, Clear to percussion, Normal respiratory effort, no accessory muscle use Cardiovascular: Heart regular in rate and rhythm, No murmurs, gallops, or rubs no peripheral edema Abdominal: Soft Nontender, nom distended, no guarding, no rebound or rigidity, Normoactive bowel sounds No hepatomegaly, No splenomegaly, No palpable mass No abdominal wall hernia noted Skin: Normal temperature, tone, texture, turgor, No induration No subcutaneous nodules, No rash, lesions, No ulcers Extremities:No digital cyanosis No clubbing, Pedal pulses intact and symmetrical Radial pulses intact and symmetrical Normal gait and station, No calf tenderness Psychiatric: Alert and oriented to person, place and time, somnolent but arousable Neuro: Muscles Strength 5/5 in all 4 extremities, Sensation to light touch grossly present throughout, Cranial nerves II-XII grossly intact. No focal sensory deficits - Labs CBC & Chem 7: 09/12/17 02:31 09/12/17 02:31 Labs: Abnormal Lab Results - Last 24 Hours (Table) 09/10/17 09/12/17 09/12/17 Range/Units 22:12 02:31 02:31 MCHC 30.6 L (31.0-37.0) g/dL RDW 17.4 H (11.5-15.5) % Chloride 111 H (98-107) mmol/L Carbon Dioxide 21 L (22-30) mmol/L Phenobarbital 11.9 L (15.0-40.0) ug/mL Assessment and Plan (1) Status epilepticus Narrative/Plan: * Likely secondary to opiate methadone withdrawal, neurology Dr. Chan following * Having ongoing intermittent frequency is much improved, EEG done yesterday results pending * patient Dilantin level therapeutic low therapeutic range, continue with current dosing of 100 mg 3 times a day, Keppra 500 mg twice a day and phenobarbital 100 mg daily * Continue with neuro checks and seizure precautions Current Visit: Yes Status: Acute Code(s): G40.901 - EPILEPSY, UNSP, NOT INTRACTABLE, WITH STATUS EPILEPTICUS SNOMED Code(s): 582039294 (2) Opiate withdrawal Narrative/Plan: * Withdrawal from methadone * continue with methadone 65 mg PO daily Current Visit: Yes Status: Acute Code(s): F11.23 - OPIOID DEPENDENCE WITH WITHDRAWAL SNOMED Code(s): 49360163
--- NOTE | 2017-09-12 17:11 | P.PN ---
Subjective Progress Note Date: 09/12/17 This patient is a 37-year-old female who was in [facility] program for methadone withdrawal. She had several seizures and was transferred to the [facility] and subsequent admitted into the intensive care unit. She was loaded with Dilantin and she had ongoing seizure activity. She has a history of seizures and is also been using Keppra and phenobarbital in the past. She is currently on Keppra 500 mg twice a day. Her Dilantin level was checked today and is therapeutic at 11.1. She did have 2 small 10 second seizure-like events at 2 AM this morning. She has been doing fine since and has had no further seizures. Her dosage of methadone has been increased to 65 mg daily. She seems to be doing better on this higher dose. We have recommended to change her maintenance dose of Dilantin today to 200 mg by mouth twice a day. We will also place her on oral form of Keppra 500 mg 1 by mouth twice a day as well. We will recheck a Dilantin level tomorrow morning. Her EEG which was completed yesterday was reviewed and is normal for her age. She should be closely monitored for nonepileptic seizures as well given the normal EEG findings. We will continue however to adjust her anticonvulsant medications as needed. Would continue close monitoring of her condition. Hopefully she will be able to return to the [facility] program on Thursday. We will continue to follow her progress closely. Objective - Vital Signs Vital signs: Vital Signs Temp 98.0 F 09/12/17 16:08 Pulse 82 09/12/17 16:08 Resp 15 09/12/17 16:08 BP 97/79 09/12/17 16:08 Pulse Ox 98 09/12/17 16:08 Intake & Output 09/11/17 09/12/17 09/12/17 18:59 06:59 18:59 Intake Total 1575 1635 1310 Output Total 1600 1100 400 Balance -25 535 910 Weight 75 kg 77.4 kg 77.4 kg Intake: IV 1375 1635 250 Sodium Chloride 0.9% 1, 1375 1635 250 000 ml @ 125 mls/hr IV . Q8H [facility] Rx#:[id number] Intake, IV Titration 200 100 Amount Phenytoin Sodium Inj 700 100 mg In Sodium Chloride 0.9 % 100 ml @ 200 mls/hr IVPB [facility] Rx#: [id number] levETIRAcetam IV 500 mg 100 100 In Sodium Chloride 0.9% 100 ml @ 400 mls/hr IVPB Q12HR [facility] Rx#:[id number] Oral 960 Output: Urine 1600 1100 400 Other: Voiding Method Bedpan Bedpan Toilet # Voids 1 - Exam Physical examination: PHYSICAL EXAMINATION: Patient is resting comfortably in bed. VITAL SIGNS: Blood pressure is [97/79]. Heart rate is [82]. Respiration is [15] . Temperature is [98.0]. HEENT: Head is atraumatic, neck is supple, there were no carotid bruits. CHEST: Lungs are clear to auscultation and percussion. CARDIAC: S1, S2 normal rate and rhythm. There is no murmur. ABDOMEN: Soft and nontender. Bowel sounds are present. EXTREMITIES: There is no pedal edema. Peripheral pulses are present. Neurological examination: Patient has a nonfocal neurological examination today. - Labs CBC & Chem 7: 09/12/17 02:31 09/12/17 02:31 Labs: Abnormal Lab Results - Last 24 Hours (Table) 09/12/17 09/12/17 Range/Units 02:31 02:31 MCHC 30.6 L (31.0-37.0) g/dL RDW 17.4 H (11.5-15.5) % Chloride 111 H (98-107) mmol/L Carbon Dioxide 21 L (22-30) mmol/L Assessment and Plan (1) Opiate withdrawal Current Visit: Yes Status: Acute Code(s): F11.23 - OPIOID DEPENDENCE WITH WITHDRAWAL SNOMED Code(s): 07477923 (2) Complex partial epilepsy Current Visit: Yes Status: Acute Code(s): G40.209 - LOCAL-REL SYMPTC EPI W CMPLX PRT SEIZ,NOT NTRCT,W/O STAT EPI SNOMED Code(s): 379944123 (3) Status epilepticus Current Visit: Yes Status: Acute Code(s): G40.901 - EPILEPSY, UNSP, NOT INTRACTABLE, WITH STATUS EPILEPTICUS SNOMED Code(s): 714961737 Plan: This patient is a 37-year-old female admitted to hospital after having multiple seizures at the [facility]. She was loaded with Dilantin in the emergency room and transferred to the intensive care unit. She underwent routine EEG today which is reviewed and is normal for age. Her Dilantin level this morning is 11.1. Keppra level is still pending. We have switched the patient to oral dosing on both Dilantin and Keppra. We will continue to monitor her condition closely. Hopefully she will be able to return to the [facility] program on Thursday. Her overall prognosis at this time remains guarded.
[2017-09-12] MEDS: PHENYTOIN SODIUM EXTENDED 100 MG CAP PO SCH (20:01)
[2017-09-12] MEDS ORDERED: levETIRAcetam 500 MG TAB PO SCH (21:00)
[2017-09-13] MEDS: LORazepam 2 MG/ML INJ IV PRN ×6 (00:02→20:48)
[2017-09-13] MEDS: cloNIDine HCL 0.1 MG TAB PO PRN (03:15)
[2017-09-13 04:44] LABS: Anisocytosis Slight; Basophils % (A) 1 %; Eosinophils # (A) 0.3 k/uL (0-0.7); Eosinophils % (A) 4 %; HCT 39.2 % (34.0-46.0); HGB 12.2 gm/dL (11.4-16.0); Lymphocytes # (A) 1.7 k/uL (1.0-4.8); Lymphocytes % (A) 28 %; MCH 29.2 pg (25.0-35.0); MCHC 31.1 g/dL (31.0-37.0); MCV 93.9 fL (80.0-100.0); Mean Platelet Volume 7.4; Monocytes # (A) 0.3 k/uL (0-1.0); Monocytes % (A) 5 %; Neutrophils # (A) 3.7 k/uL (1.3-7.7); Neutrophils % (A) 59 %; Platelet Count 372 k/uL (150-450); RBC 4.18 m/uL (3.80-5.40); RDW 17.2 % (11.5-15.5); WBC 6.3 k/uL (3.8-10.6)
[2017-09-13 05:01] LABS: Anion Gap 15 mmol/L; Blood Urea Nitrogen 8 mg/dL (7-17); Calcium 9.7 mg/dL (8.4-10.2); Carbon Dioxide 19 mmol/L (22-30); Chloride 108 mmol/L (98-107); Glucose 92 mg/dL (74-99); Magnesium 1.8 mg/dL (1.6-2.3); Phosphorus 4.4 mg/dL (2.5-4.5); Sodium 142 mmol/L (137-145)
[2017-09-13] MEDS: GABAPENTIN 400 MG CAP PO SCH ×2 (06:07→16:26)
[2017-09-13] MEDS: SERTRALINE 50 MG TAB PO SCH (06:07)
[2017-09-13] MEDS: PHENYTOIN SODIUM INJ 700 MG in SODIUM CHLORIDE 0.9% 100 ML IVPB STA ×3 (06:50→10:01)
[2017-09-13] MEDS: METHADONE 10 MG TAB PO SCH (08:03)
[2017-09-13] MEDS: levETIRAcetam 500 MG TAB PO SCH ×2 (08:05→20:42)
[2017-09-13] MEDS: FAMOTIDINE 20 MG TAB PO SCH ×2 (08:06→20:41)
[2017-09-13] MEDS: PHENYTOIN SODIUM EXTENDED 100 MG CAP PO SCH ×2 (08:06→20:41)
[2017-09-13] MEDS: THIAMINE 100 MG TAB PO SCH (08:06)
[2017-09-13] MEDS: PHENobarbital SODIUM 130 MG/ML 1 ML VIAL IV SCH (08:57)
[2017-09-13] MEDS ORDERED: PHENYTOIN SODIUM EXTENDED 100 MG CAP PO STA (10:03)
[2017-09-13] MEDS ORDERED: PHENYTOIN SODIUM EXTENDED 100 MG CAP PO ONE (11:30)
--- NOTE | 2017-09-13 12:18 | P.PN ---
Subjective Progress Note Date: 09/13/17 This patient is a 37-year-old right-handed white female who was admitted from [facility] drug rehabilitation program for seizures. Patient had been at the facility for a detox program for methadone. She has a history of seizures even previously to being admitted there. She had been taking Keppra as her primary anticonvulsant medication. Patient had possibly withdrawal symptoms to the methadone. She began having multiple seizures and was admitted to [facility] for further management. She has been doing better and is now been started on Dilantin in combination with her Keppra. Her Dilantin level early this morning was slightly subtherapeutic at 7.0. She was given an oral bolus of Dilantin for further treatment. Her Keppra level has been therapeutic at 3.6. Patient is much more awake and alert this morning. She would like to go to a medical floor as she is feeling much better today. Hopefully she will be able to return to the [facility] tomorrow if she remains medically stable. The patient complains of symptoms of restless leg syndrome occurring at night. This causes her to become very anxious and actually may trigger some small seizure events at night. Most of his seizures have been occurring between 12 and 5 AM. As noted her routine EEG was normal with no active seizure focus. At this time we would recommend that she be maintained on combination of Dilantin and Keppra with maximum dosage. We will recheck her Dilantin level tomorrow morning. Patient was seen by Dr. Isidro this morning. She is being considered for discharge to the medical floor later today. Would recommend a complete her bolus of oral Dilantin before transfer out of the ICU. We have suggested the patient to begin a trial of Requip for treatment of restless leg syndrome at night. We will put her on very low dose of 0.25 mg Requip at bedtime. We will continue to monitor her progress closely. Her overall prognosis at this time remains guarded. Objective - Vital Signs Vital signs: Vital Signs Temp 98.9 F 09/13/17 08:00 Pulse 108 H 09/13/17 12:00 Resp 26 H 09/13/17 12:00 BP 117/77 09/13/17 12:00 Pulse Ox 97 09/13/17 11:00 Intake & Output 09/12/17 09/13/1718 18:59 06:59 18:59 Intake Total 1310 400 Output Total 400 200 300 Balance 910 200 -300 Weight 77.4 kg 74.3 kg 74.3 kg Intake: IV 250 Sodium Chloride 0.9% 1, 250 000 ml @ 125 mls/hr IV . Q8H [facility] Rx#:[id number] Intake, IV Titration 100 Amount levETIRAcetam IV 500 mg 100 In Sodium Chloride 0.9% 100 ml @ 400 mls/hr IVPB Q12HR [facility] Rx#:[id number] Oral 960 400 Output: Urine 400 200 300 Other: Voiding Method Toilet Bedpan # Voids 1 1 1 # Bowel Movements 1 - Exam Physical examination: PHYSICAL EXAMINATION: Patient is resting comfortably in bed. VITAL SIGNS: Blood pressure is [117/77]. Heart rate is [108]. Respiration is [26 ]. Temperature is [98.9]. HEENT: Head is atraumatic, neck is supple, there were no carotid bruits. CHEST: Lungs are clear to auscultation and percussion. CARDIAC: S1, S2 normal rate and rhythm. There is no murmur. ABDOMEN: Soft and nontender. Bowel sounds are present. EXTREMITIES: There is no pedal edema. Peripheral pulses are present. Neurological examination: Patient has a nonfocal neurological examination today. Patient is much more awake and alert this morning. She is following all commands. She has had no further seizures this morning. She is being considered for transfer out of the ICU later today. - Labs CBC & Chem 7: 09/13/17 04:18 09/13/17 04:18 Labs: Abnormal Lab Results - Last 24 Hours (Table) 09/13/17 09/13/17 Range/Units 04:18 04:18 RDW 17.2 H (11.5-15.5) % Chloride 108 H (98-107) mmol/L Carbon Dioxide 19 L (22-30) mmol/L Assessment and Plan (1) Opiate withdrawal Current Visit: Yes Status: Acute Code(s): F11.23 - OPIOID DEPENDENCE WITH WITHDRAWAL SNOMED Code(s): 75564921 (2) Complex partial epilepsy Current Visit: Yes Status: Acute Code(s): G40.209 - LOCAL-REL SYMPTC EPI W CMPLX PRT SEIZ,NOT NTRCT,W/O STAT EPI SNOMED Code(s): 155945854 (3) Status epilepticus Current Visit: Yes Status: Acute Code(s): G40.901 - EPILEPSY, UNSP, NOT INTRACTABLE, WITH STATUS EPILEPTICUS SNOMED Code(s): 687039191 Plan: This patient is a 37-year-old female initially admitted from [facility] where she was undergoing detox for methadone. She developed multiple seizures and was transferred to the intensive care unit at [facility] for further treatment. She was loaded with Dilantin due to the multiple seizures. She is currently on a combination of Dilantin and Keppra. She is doing much better today in the ICU. She is more awake and alert. She had a "small seizure early this morning but attributes a lot of this to anxiety and withdrawal from her methadone. She underwent routine EEG which was reviewed and is normal for her age. At this time we would recommend treatment of possible restless leg syndrome with low-dose Requip at bedtime. We will continue her on combination of Dilantin and Keppra at her current dose. Her Dilantin level this morning was slightly subtherapeutic at 7.0. She be given an oral bolus of Dilantin and her Dilantin level will be rechecked tomorrow morning. Patient was seen by Dr. Isidro and is been cleared for discharge to the medical floor. She is neurologically stable at this time and will await possible transfer out of the ICU if cleared by medicine. She should continue with seizure precautions. We will see how she responds to the Requip and adjust his dose as needed tomorrow. Patient is much more awake and alert this morning. She is following all commands. Her heart rate was slightly low this morning but is now back to normal range. We will continue close neurological follow-up with this patient in the ICU. Her overall prognosis at this time remains guarded.
--- NOTE | 2017-09-13 12:23 | P.PN ---
Subjective Progress Note Date: 09/13/17 Patientwas apparently agitated overnight and anxious , nursing reporting a single of seizure-like activity this a.m. apparently tonic-clonic in nature lasting < 10 seconds. Patient is currently awake and pleasant and answering questions appropriately. Objective - Vital Signs Vital signs: Vital Signs Temp 98.9 F 09/13/17 08:00 Pulse 108 H 09/13/17 12:00 Resp 26 H 09/13/17 12:00 BP 117/77 09/13/17 12:00 Pulse Ox 97 09/13/17 11:00 Intake & Output 09/12/17 09/13/17 09/13/17 18:59 06:59 18:59 Intake Total 1310 400 Output Total 400 200 300 Balance 910 200 -300 Weight 77.4 kg 74.3 kg 74.3 kg Intake: IV 250 Sodium Chloride 0.9% 1, 250 000 ml @ 125 mls/hr IV . Q8H [facility] Rx#:[id number] Intake, IV Titration 100 Amount levETIRAcetam IV 500 mg 100 In Sodium Chloride 0.9% 100 ml @ 400 mls/hr IVPB Q12HR [facility] Rx#:[id number] Oral 960 400 Output: Urine 400 200 300 Other: Voiding Method Toilet Bedpan # Voids 1 1 1 # Bowel Movements 1 - Exam Constitutional: No acute distress, conversant, pleasant Eyes: Anicteric sclerae, moist conjunctiva, no lid-lag, PERRLA ENMT: NC/AT,Oropharynx clear, no erythema, exudates Neck:Supple, FROM, no masses, or JVD, No carotid bruits; No thyromegaly Lungs: Clear to auscultation, Clear to percussion, Normal respiratory effort, no accessory muscle use Cardiovascular: Heart regular in rate and rhythm, No murmurs, gallops, or rubs no peripheral edema Abdominal: Soft Nontender, nom distended, no guarding, no rebound or rigidity, Normoactive bowel sounds No hepatomegaly, No splenomegaly, No palpable mass No abdominal wall hernia noted Skin: Normal temperature, tone, texture, turgor, No induration No subcutaneous nodules, No rash, lesions, No ulcers Extremities:No digital cyanosis No clubbing, Pedal pulses intact and symmetrical Radial pulses intact and symmetrical Normal gait and station, No calf tenderness Psychiatric: Alert and oriented to person, place and time, somnolent but arousable Neuro: Muscles Strength 5/5 in all 4 extremities, Sensation to light touch grossly present throughout, Cranial nerves II-XII grossly intact. No focal sensory deficits - Labs CBC & Chem 7: 09/13/17 04:18 09/13/17 04:18 Labs: Abnormal Lab Results - Last 24 Hours (Table) 09/13/17 09/13/17 Range/Units 04:18 04:18 RDW 17.2 H (11.5-15.5) % Chloride 108 H (98-107) mmol/L Carbon Dioxide 19 L (22-30) mmol/L Assessment and Plan (1) Status epilepticus Narrative/Plan: * Likely secondary to opiate methadone withdrawal, neurology Dr. Chan following * Having ongoing intermittent frequency is much improved, EEG done yesterday results pending * patient Dilantin level subtherapeutic anticipate neurology will be titrating up her dose and giving her a bolus, continue, Keppra 750 mg twice a day and phenobarbital 100 mg daily * Continue with neuro checks and seizure precautions Current Visit: Yes Status: Acute Code(s): G40.901 - EPILEPSY, UNSP, NOT INTRACTABLE, WITH STATUS EPILEPTICUS SNOMED Code(s): 693464906 (2) Opiate withdrawal Narrative/Plan: * Withdrawal from methadone * continue with methadone 65 mg PO daily Current Visit: Yes Status: Acute Code(s): F11.23 - OPIOID DEPENDENCE WITH WITHDRAWAL SNOMED Code(s): 89486934
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
[2017-09-13] MEDS ORDERED: NICOTINE 21MG/24HR PATCH TRANSDERM SCH (18:30)
[2017-09-13] MEDS ORDERED: LORazepam 2 MG/ML INJ IV STA (22:19)
[2017-09-13 22:22] VITALS: RESP 16
[2017-09-13] MEDS: busPIRone HCl 10 MG TAB PO PRN (22:24)
[2017-09-14] MEDS: LORazepam 2 MG/ML INJ IV PRN ×2 (01:01→07:40)
[2017-09-14] MEDS ORDERED: LORazepam 2 MG/ML INJ IV STA (03:57)
[2017-09-14] MEDS ORDERED: LORazepam 2 MG/ML INJ IV PRN (03:58)
[2017-09-14] MEDS: SERTRALINE 50 MG TAB PO SCH (06:20)
[2017-09-14] MEDS: GABAPENTIN 400 MG CAP PO SCH (06:20)
[2017-09-14] MEDS: FAMOTIDINE 20 MG TAB PO SCH (07:41)
[2017-09-14] MEDS: METHADONE 10 MG TAB PO SCH (07:41)
[2017-09-14 07:46] VITALS: BP 103/65; PULSE 62; TEMP 98.6
[2017-09-14] MEDS: PHENYTOIN SODIUM EXTENDED 100 MG CAP PO SCH (07:46)
[2017-09-14] MEDS: levETIRAcetam 500 MG TAB PO SCH (07:46)
[2017-09-14] MEDS: THIAMINE 100 MG TAB PO SCH (07:47)
[2017-09-14] MEDS ORDERED: PHENobarbital 32.4 MG TAB PO SCH (09:00)
[2017-09-14] MEDS ORDERED: LORazepam 1 MG TAB PO PRN (11:18)
--- NOTE | 2017-09-14 11:33 | P.DS ---
Providers Date of admission: 09/10/17 23:22 Expected date of discharge: 09/14/17 Attending physician: Antonina Harris DO Consults: 09/10/17 23:23 Consult Physician Urgent Consulting Provider: Abhinav Chan Consult Reason/Comments: Status epilepticus Do you want consulting provider notified?: Yes 09/11/17 10:00 Consult Physician Stat Consulting Provider: Mine Isidro Consult Reason/Comments: ICU manGEMENT Do you want consulting provider notified?: Already Contacted Primary care physician: Stated None - Discharge Diagnosis(es) (1) Status epilepticus Current Visit: Yes Status: Acute (2) Complex partial epilepsy Current Visit: Yes Status: Acute (3) Opiate withdrawal Current Visit: Yes Status: Acute (4) RLS (restless legs syndrome) Current Visit: Yes Status: Acute (5) Hyperchloremic acidosis Current Visit: Yes Status: Acute (6) Depression Current Visit: Yes Status: Acute (7) Tobacco abuse Current Visit: Yes Status: Acute Hospital Course: Patient is a 37-year-old female with a past medical history of tobacco abuse, methadone use, and seizure disorder who presented via EMS to the hospital from [place] after having a seizure that lasted 10 minutes. At [place] waldoe gave her 2 mg of Ativan. She had 2 additional seizures in the ems rig where they gave her 10 of Valium. She had an additional seizure after presenting here to the hospital requiring an additional 1 mg of Ativan. They also started on Dilantin 1000 mg. In the ER she underwent an extensive evaluation. Vital sign, head CT, and laboratory analysis were all within normal limits. She was admitted to ICU overflow from [facility]. She was seen by neurology. She had an EEG which was unremarkable. She was wearing from profound opiate withdrawal. Her methadone was increased to 55 mg daily. She was also started on IV phenobarbital with her withdrawal symptoms. She required multiple doses of Ativan during her hospitalization secondary to increased anxiety. Her Keppra dose was increased to 750 mg every 12 from her home dose of 500 mg every 12 hours. On 09/12 her Dilantin was increased to 200 mg twice daily from her initial 100mg three times daily. She had one additional seizure early in the morning on 09/13/16, her Dilantin level was found to be low. Neurology gave an additional dose of IV dilantin. She remained seizure free for 24 hours and her repeat Dilantin level was 17 on the morning of 09/14/16. She did struggle with opiate withdrawal symptoms, increased anxiety, and restless legs symptoms. Her opiate withdrawal became severe enough that her methadone did need to be increased. She was started on Requip which did seem to help, only slightly. She felt as though the tablet methadone was working better than her liquid. On the morning on 09/14 she was feeling better and was determined stable for discharge. She was discharged back to [facility]. Case was discussed with Dr. Dominguez prior to discharge. She was given the number for [facility] neurology as she is from [place], [place]. Patient seen and examined at bedside. C/O inability to sleep, prickling sensation on legs, depression, and feeling exhausted. She is worried about being asked to do to much at [place] as when she is more stressed it brings on her seizures. Vital signs reviewed and stable. General: non toxic, no distress, appears at stated age Derm: warm, dry Head: atraumatic, normocephalic, symmetric Eyes: EOMI, no lid lag, anicteric sclera Mouth: no lip lesion, mucus membranes moist Cardiovascular: S1S2 reg, no murmur, positive posterior tibial pulse bilateral, Lungs: CTA bilateral, no rhonchi, no rales , no accessory muscle use Abdominal: soft, nontender to palpation, no guarding, no appreciable organomegaly Ext: no gross muscle atrophy, no edema, no contractures Neuro: CN II-XI grossly intact, no focal neuro deficits Psych: Alert, oriented, appropriate affect A total of 45 minutes of time were spent preparing this complex discharge summary . Pertinent Studies: CT brain- negative EEG- negative Procedures: None Patient Condition at Discharge: Serious Plan - Discharge Summary Discharge Rx Participant: No New Discharge Prescriptions: New Famotidine [Pepcid] 20 mg PO BID tab Ibuprofen [Motrin] 400 mg PO Q6HR PRN tab PRN Reason: Mild Pain Or Fever > 100.5 levETIRAcetam [Keppra] 750 mg PO BID #60 tab LORazepam [Ativan] 1 mg PO Q6H PRN #42 tab PRN Reason: Anxiety Melatonin 3 mg PO HS PRN tablet PRN Reason: Insomnia Methadone [Dolophine] 65 mg PO DAILY tab PHENobarbital [Luminal] 32.4 mg PO DAILY 7 Days tab Phenytoin Sodium Extended [Dilantin] 200 mg PO BID #120 capsule rOPINIRole HCL [Requip] 0.25 mg PO HS tab Continue traZODone HCL 50 - 150 mg PO HS Chlorpheniramine Maleate [Chlor-Trimeton] 4 mg PO Q4H PRN PRN Reason: WITHDRAWL Acetaminophen Tab [Tylenol] 650 mg PO Q4H PRN PRN Reason: Pain Trimethobenzamide [Tigan] 300 mg PO Q6H PRN PRN Reason: Nausea Ondansetron [Zofran] 4 mg IM Q6H PRN PRN Reason: Nausea Ondansetron HCl [Zofran] 8 mg PO Q6H PRN PRN Reason: Nausea Calcium 1000mg Magnesium 500mg 1 tab PO TID PRN PRN Reason: MUSCLE CRAMPS cloNIDine HCL [Catapres] 0.1 mg PO Q4H PRN PRN Reason: Anxiety busPIRone HCl [Buspar] 10 mg PO TID PRN PRN Reason: Anxiety Gabapentin [Neurontin] 1,200 mg PO BID@0600,1730 Sertraline [Zoloft] 150 mg PO DAILY@0600 Thiamine [Vitamin B-1] 100 mg PO DAILY Multivitamins, Thera [Multivitamin (formulary)] 1 tab PO DAILY Discontinued Ibuprofen [Motrin] 600 mg PO Q6H PRN PRN Reason: Pain Loperamide [Imodium] 2 mg PO QID PRN PRN Reason: Loose Stool Hyoscyamine Sulfate [Levsin] 0.125 mg PO QID PRN PRN Reason: STOMACH CRAMPS Tigan 200mg 200 mg IM Q6H PRN PRN Reason: Nausea levETIRAcetam [Keppra] 500 mg PO DAILY@0600 PHENobarbital 32.4 mg PO ONCE Methadone (Unknown Dose) 1 dose PO DIRECTED Discharge Medication List Acetaminophen Tab [Tylenol] 650 mg PO Q4H PRN 09/10/17 [History] Calcium 1000mg Magnesium 500mg 1 tab PO TID PRN 09/10/17 [History] Chlorpheniramine Maleate [Chlor-Trimeton] 4 mg PO Q4H PRN 09/10/17 [History] Gabapentin [Neurontin] 1,200 mg PO BID@0600,1730 09/10/17 [History] Multivitamins, Thera [Multivitamin (formulary)] 1 tab PO DAILY 09/10/17 [History ] Ondansetron HCl [Zofran] 8 mg PO Q6H PRN 09/10/17 [History] Ondansetron [Zofran] 4 mg IM Q6H PRN 09/10/17 [History] Sertraline [Zoloft] 150 mg PO DAILY@0600 09/10/17 [History] Thiamine [Vitamin B-1] 100 mg PO DAILY 09/10/17 [History] Trimethobenzamide [Tigan] 300 mg PO Q6H PRN 09/10/17 [History] busPIRone HCl [Buspar] 10 mg PO TID PRN 09/10/17 [History] cloNIDine HCL [Catapres] 0.1 mg PO Q4H PRN 09/10/17 [History] traZODone HCL 50 - 150 mg PO HS 09/10/17 [History] Famotidine [Pepcid] 20 mg PO BID tab 09/14/17 [Rx] Ibuprofen [Motrin] 400 mg PO Q6HR PRN tab 09/14/17 [Rx] LORazepam [Ativan] 1 mg PO Q6H PRN #42 tab 09/14/17 [Rx] Melatonin 3 mg PO HS PRN tablet 09/14/17 [Rx] Methadone [Dolophine] 65 mg PO DAILY tab 09/14/17 [Rx] PHENobarbital [Luminal] 32.4 mg PO DAILY 7 Days tab 09/14/17 [Rx] Phenytoin Sodium Extended [Dilantin] 200 mg PO BID #120 capsule 09/14/17 [Rx] levETIRAcetam [Keppra] 750 mg PO BID #60 tab 09/14/17 [Rx] rOPINIRole HCL [Requip] 0.25 mg PO HS tab 09/14/17 [Rx] Follow up Appointment(s)/Referral(s): None,Stated [Primary Care Provider] - 1-2 days Patient Instructions/Handouts: Lorazepam (By mouth), Phenytoin (By mouth), Levetiracetam (By mouth), New-Onset Seizure in Adults (DC) Activity/Diet/Wound Care/Special Instructions: Regular diet Activity as tolerated Patient has preferred methadone tablets over the liquid as she is not having as much wear off. She would also like to split the dose if at all possible to 1/2 in the AM and 1/2 in the evening. Patient should attempt to relax over then next several days and will need time to sit and recover. Attempt to minimize sleep disruptions. No driving for 6 months. Will need to follow-up with neurologist as soon as possible after discharge. You should also establish with a primary care physician. Discharge Disposition: OTHER INSTITUTION NOT DEFINED Pending Studies Pending Results: None
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
== END 2017-09-14 13:37 | disposition still patient (30) | DRG 101 ==
LOC: EC 21:54 → 6ICU 23:22 → 5MS5E 09-13 15:15
PROVIDERS: ADMIT Internal Medicine; ATTEND Internal Medicine
DX: G40.201 Localization-related (focal) (partial) symptomatic epilepsy and epileptic syndromes with complex partial seizures, not intractable, with status epilepticus (principal); E87.2 Acidosis; F11.23 Opioid dependence with withdrawal; F10.11 Alcohol abuse, in remission; R00.1 Bradycardia, unspecified; T42.0X5A Adverse effect of hydantoin derivatives, initial encounter; T46.5X5A Adverse effect of other antihypertensive drugs, initial encounter; G25.81 Restless legs syndrome; F32.9 Major depressive disorder, single episode, unspecified; F41.9 Anxiety disorder, unspecified; Y90.0 Blood alcohol level of less than 20 mg/100 ml; F17.200 Nicotine dependence, unspecified, uncomplicated; Z79.899 Other long term (current) drug therapy; Z87.81 Personal history of (healed) traumatic fracture; Z88.0 Allergy status to penicillin; Z87.820 Personal history of traumatic brain injury; Y92.230 Patient room in hospital as the place of occurrence of the external cause
CPT/HCPCS: 36415; 70450; 80048; 80053; 80177; 80184; 80185; 80306; 80320; 81001; 81025; 82040; 82550; 83735; 84100; 85025; 93005; 95819; 96361; 96365; 96375; 99291

== ENCOUNTER 2017-09-15 11:20 | Emergency (ER) | payer OTHER ==
[2017-09-15 11:36] VITALS: TEMP 98.3
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
[2017-09-15 12:18] LABS: Basophils % (A) 0 %; Eosinophils % (A) 1 %; HCT 39.3 % (34.0-46.0); Lymphocytes # (A) 1.2 k/uL (1.0-4.8); Lymphocytes % (A) 20 %; MCHC 33.1 g/dL (31.0-37.0); MCV 90.5 fL (80.0-100.0); Mean Platelet Volume 6.6; Monocytes # (A) 0.2 k/uL (0-1.0); Monocytes % (A) 3 %; Neutrophils # (A) 4.3 k/uL (1.3-7.7); Neutrophils % (A) 74 %; Platelet Count 438 k/uL (150-450); RBC 4.34 m/uL (3.80-5.40); RDW 15.9 % (11.5-15.5); WBC 5.8 k/uL (3.8-10.6)
[2017-09-15 12:32] LABS: ALT 32 U/L (9-52); AST 22 U/L (14-36); Albumin 4.7 g/dL (3.5-5.0); Alkaline Phosphatase 90 U/L (38-126); Anion Gap 18 mmol/L; Blood Urea Nitrogen 5 mg/dL (7-17); Calcium 9.8 mg/dL (8.4-10.2); Carbon Dioxide 19 mmol/L (22-30); Chloride 110 mmol/L (98-107); Glucose 93 mg/dL (74-99); Magnesium 2.1 mg/dL (1.6-2.3); Phenytoin (Dilantin) 15.5 ug/mL; Potassium 4.3 mmol/L (3.5-5.1); Sodium 147 mmol/L (137-145); Total Bilirubin 0.3 mg/dL (0.2-1.3)
[2017-09-15] MEDS ORDERED: ACETAMINOPHEN TAB 500 MG TAB PO STA (12:36)
[2017-09-15 13:39] LABS: Amphetamine Screen,Urine Not Detected (NotDetected); Benzodiazepines Screen,Urine Detected (NotDetected); Cocaine Screen,Urine Not Detected (NotDetected); Methadone Screen, Urine Detected (NotDetected); Opiate Screen,Urine Not Detected (NotDetected); Phencyclidine Screen,Urine Not Detected (NotDetected); Tricyclic Antidepressant,Urine Not Detected (NotDetected); Urn Cannabinoid Scrn Not Detected (NotDetected)
[2017-09-15 13:40] LABS: Barbiturate Screen,Urine Detected (NotDetected); Oxycodone Screen, Urine Not Detected (NotDetected)
[2017-09-15 13:44] LABS: Appearance,Urine Clear (Clear); Bacteria,Urine Rare /hpf; Bilirubin,Urine Negative (Negative); Blood,Urine Negative (Negative); Color,Urine Light Yellow; Glucose,Urine (UA) Negative (Negative); Ketones,Urine Negative (Negative); Leukocyte Esterase,Urine Trace (Negative); Mucus,Urine Rare /hpf; Nitrite,Urine Negative (Negative); Protein,Urine Negative (Negative); Specific Gravity,Urine 1.007 (1.001-1.035); Squamous Epithelial Cell,Urine 2 /hpf (0-4); Urobilinogen,Urine <2.0 mg/dL (<2.0); WBC,Urine 1 /hpf (0-5)
[2017-09-15 14:33] VITALS: BP 120/77; PULSE 85; RESP 18
== END 2017-09-15 14:32 | disposition home or self-care (01) ==
LOC: EC 11:20
DX: R56.9 Unspecified convulsions (principal); F17.200 Nicotine dependence, unspecified, uncomplicated; Z79.899 Other long term (current) drug therapy; Z88.0 Allergy status to penicillin; W01.10XA Fall on same level from slipping, tripping and stumbling with subsequent striking against unspecified object, initial encounter
CPT/HCPCS: 36415; 80053; 80177; 80185; 80306; 81001; 83735; 85025; 99284

== ENCOUNTER 2017-09-16 03:11 | Emergency (ER) | payer OTHER ==
[2017-09-16] MEDS ORDERED: SODIUM CHLORIDE 0.9% 1,000 ML IV STA (03:26)
[2017-09-16] MEDS ORDERED: levETIRAcetam IV 1,000 MG in SALINE 1 100ML.BAG IVPB STA (03:28)
[2017-09-16 03:29] LABS: Glucose,Whole Blood 98 mg/dL (75-99)
[2017-09-16] MEDS: LORazepam 2 MG/ML INJ IV STA ×2 (03:30→06:06)
[2017-09-16 03:36] LABS: Basophils % (A) 0 %; Eosinophils # (A) 0.2 k/uL (0-0.7); Eosinophils % (A) 3 %; HCT 40.3 % (34.0-46.0); HGB 13.3 gm/dL (11.4-16.0); Lymphocytes % (A) 26 %; MCH 30.5 pg (25.0-35.0); MCHC 32.9 g/dL (31.0-37.0); MCV 92.9 fL (80.0-100.0); Monocytes # (A) 0.4 k/uL (0-1.0); Monocytes % (A) 5 %; Neutrophils # (A) 4.9 k/uL (1.3-7.7); Neutrophils % (A) 64 %; Platelet Count 444 k/uL (150-450); RBC 4.35 m/uL (3.80-5.40); WBC 7.7 k/uL (3.8-10.6)
[2017-09-16 03:44] LABS: ALT 21 U/L (9-52); AST 24 U/L (14-36); Acetaminophen <10.0 ug/mL; Albumin 4.8 g/dL (3.5-5.0); Alcohol <10 mg/dL; Alkaline Phosphatase 81 U/L (38-126); Anion Gap 16 mmol/L; Blood Urea Nitrogen 10 mg/dL (7-17); Calcium 10.2 mg/dL (8.4-10.2); Carbon Dioxide 19 mmol/L (22-30); Chloride 109 mmol/L (98-107); Glucose 82 mg/dL (74-99); Potassium 4.3 mmol/L (3.5-5.1); Salicylate <1.0 mg/dL; Sodium 144 mmol/L (137-145); Total Bilirubin 0.4 mg/dL (0.2-1.3); Total Protein 7.5 g/dL (6.3-8.2)
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
--- NOTE | 2017-09-16 04:26 | CT ---
EXAM: CT Head Without Intravenous Contrast CLINICAL HISTORY: Reason: Pain TECHNIQUE: Axial computed tomography images of the head/brain without intravenous contrast. CTDI is 60.30 mGy and DLP is 945.50 mGy-cm. This CT exam was performed using one or more of the following dose reduction techniques: automated exposure control, adjustment of the mA and/or kV according to patient size, and/or use of iterative reconstruction technique. COMPARISON: 09/10/2017 FINDINGS: Brain: Unremarkable. No hemorrhage. No significant white matter disease. No edema. Ventricles: Unremarkable. No ventriculomegaly. Bones/joints: Unremarkable. No acute fracture. Soft tissues: Unremarkable. Sinuses: Unremarkable as visualized. No acute sinusitis. Mastoid air cells: Unremarkable as visualized. No mastoid effusion. IMPRESSION: No acute intracranial process or significant interval change from previous examination.
[2017-09-16] MEDS ORDERED: NALOXONE 0.4 MG/ML 1 ML VIAL IV PRN (05:58)
[2017-09-16] MEDS ORDERED: SODIUM CHLORIDE 0.9% 1,000 ML IV SCH (06:00)
[2017-09-16] MEDS ORDERED: MIDAZOLAM 2 MG/2 ML VIAL IM ONE (08:20)
[2017-09-16] MEDS ORDERED: PHENYTOIN SODIUM INJ 500 MG in SODIUM CHLORIDE 0.9% 100 ML IVPB STA (08:22)
[2017-09-16 08:27] LABS: Glucose,Whole Blood 107 mg/dL (75-99)
[2017-09-16 08:36] VITALS: TEMP 98
[2017-09-16] MEDS ORDERED: PHENobarbital 32.4 MG TAB PO SCH (09:00)
[2017-09-16] MEDS ORDERED: METHADONE 10 MG TAB PO SCH (09:15)
[2017-09-16] MEDS ORDERED: METHADONE 5 MG TAB PO SCH (09:15)
[2017-09-16 09:52] VITALS: BP 113/68; PULSE 89; RESP 18
[2017-09-16] MEDS ORDERED: PHENYTOIN SODIUM EXTENDED 100 MG CAP PO SCH (17:00)
== END 2017-09-16 09:40 | disposition other institution (70) ==
LOC: EC 03:11 → 4MS4W 05:57 → UNDOADMIN 05:57 → EC 09:40
DX: G40.919 Epilepsy, unspecified, intractable, without status epilepticus (principal); F17.200 Nicotine dependence, unspecified, uncomplicated; Z79.891 Long term (current) use of opiate analgesic; Z79.899 Other long term (current) drug therapy; Z88.0 Allergy status to penicillin
CPT/HCPCS: 36415; 93005; 80053; 85025; 83520 ×2; 80320; 70450; 99285; 96365; 96374; 96375; 96376; 96361; 96372; J2250; J2060; J1165; S0109 ×2; J1953